=== PATIENT | female | born 1955 | race Caucasian/White ===

== ENCOUNTER 2018-11-06 07:40 | Outpatient (CLI) | payer MEDICARE ==
--- NOTE | 2018-11-06 14:17 | NM ---
RADIONUCLIDE GASTRIC EMPTYING SCAN: HISTORY: Nausea. Abdominal pain. FINDINGS: Half-life emptying is 85 minutes. Planar anterior images show good mixing of radiotracer. Emptying is as follows: Time % Emptied 30 minutes 20% 50 minutes 35% 2 hours 78% 3 hours 96% 4 hours 99% IMPRESSION: Borderline half-life emptying of 85 minutes. No evidence of gastric outlet obstruction. POS: C
== END 2018-11-06 07:41 | disposition home or self-care (01) ==
LOC: NM 07:40
PROVIDERS: ATTEND Internal Medicine Gastroenterology
DX: K59.00 Constipation, unspecified (principal); R11.0 Nausea
CPT/HCPCS: 78264; A9541

== ENCOUNTER 2021-10-10 07:56 | Outpatient (CLI) | payer MEDICARE | END 2021-10-10 07:57 | disposition home or self-care (01) | LOC: NM 07:56 | PROVIDERS: ATTEND Internal Medicine Gastroenterology | DX: R11.2 Nausea with vomiting, unspecified (principal) | CPT/HCPCS: 78264; A9541 ==